=== PATIENT | male | born 1985 | race Two or more races ===

== ENCOUNTER 2017-05-04 05:44 | Emergency (ER) | payer SELFPAY ==
[~2017-05-04] VITALS: Ht 177.8 cm; Wt 105.2 kg
[2017-05-04 05:54] VITALS: BP 156/97
== END 2017-05-04 06:58 | disposition home or self-care (01) ==
LOC: ER 05:54
DX: H66.92 Otitis media, unspecified, left ear (principal); J02.9 Acute pharyngitis, unspecified; R42 Dizziness and giddiness